=== PATIENT | female | born 1990 | race Caucasian/White ===

== ENCOUNTER 2021-09-12 01:52 | Emergency (ER) | payer OTHER ==
[~2021-09-12] VITALS: Ht 167.6 cm; Wt 95.3 kg
[2021-09-12 02:18] LABS: MEAN CORPUSCULAR HEMOGLOBIN 28.2 uug (24.7-32.8); MEAN CORPUSCULAR VOLUME 82.4 fL (75.5-95.3); PLATELET COUNT (AUTO) 267 K/uL (179-408)
[2021-09-12 02:26] LABS: CREATININE 1.3 mg/dL (0.6-1.3); POTASSIUM 3.5 mmol/L (3.5-5.1)
[2021-09-12 02:32] LABS: BILIRUBIN,DIRECT 0.1 mg/dL (0.0-0.2); BILIRUBIN,TOTAL 0.4 mg/dL (0.2-1.0); TOTAL PROTEIN, SERUM 7.8 g/dL (6.4-8.2)
[2021-09-12 02:59] LABS: *URINE HCG, QUAL NEGATIVE (NEGATIVE)
[2021-09-12] MEDS ORDERED: IV NORMAL SALINE 250 ML IV ONE (03:27)
[2021-09-12] MEDS ORDERED: IOHEXOL 350 100 ML INFUS..BTL ONE (03:27)
[2021-09-12] MEDS ORDERED: SWABABLE VALVE TRANSFER SET EA MC ONE (03:27)
--- NOTE | 2021-09-12 04:00 | NUR ---
Patient in room laying on gurny reading a book with no distress noted. Tele SR with HR 78, 02 sat at 98%, BP 121/84.
--- NOTE | 2021-09-12 04:15 | NUR ---
Patient denies pain at this time. No distress noted.
--- NOTE | 2021-09-12 05:06 | NUR ---
Elijah US tech into do procedure.
[2021-09-12] MEDS: IV NS 1000 ML 1,000 ML IV ONE ×2 (05:22→05:23)
[2021-09-12] MEDS ORDERED: PIPERACILLIN SODIUM/TAZOBACTAM 3.375 G in IV DEXTROSE 5% 50 ML IV ONE (05:30)
--- NOTE | 2021-09-12 05:30 | NUR ---
Called patient's insurance for admission to med-surg floor with Dx Cholecystitis. Waiting for transfer information.
[2021-09-12] MEDS ORDERED: PIPERACILLIN/TAZOBACTAM/D5W 50 ML IV ONE (05:31)
[2021-09-12] MEDS ORDERED: SERT50TA PO (05:36)
--- NOTE | 2021-09-12 07:20 | NUR ---
DR HECK FROM [facility] S/W DR. CULLEN. ACCEPTED PT FOR ADMISSION. PENDING TRANSFER INFORMATION.
--- NOTE | 2021-09-12 08:04 | NUR ---
CALLED [facility] S/W JALEEL NURSING INSPECTOR SUBASSEMBLY. PENDING TRANSFER INFORMATION.
--- NOTE | 2021-09-12 08:57 | NUR ---
RECEIVED A CALL FROM [facility] SURGICAL DRESSING MAKER. PT IS BEING REDIRECTED TO [facility]. ANOTHER MD WILL CALL FOR PEER TO PEER.
[2021-09-12] MEDS ORDERED: ONDANSETRON 4 MG/2 ML VIAL IV ONE (09:00)
[2021-09-12] MEDS ORDERED: MORPHINE SULFATE 4 MG/1 ML DISP.SYRIN IV ONE (09:00)
[2021-09-12] MEDS ORDERED: MORPHINE SULFATE 4 MG/1 ML DISP.SYRIN ONE (09:23)
[2021-09-12] MEDS ORDERED: ONDANSETRON 4 MG/2 ML VIAL ONE (09:24)
--- NOTE | 2021-09-12 10:40 | NUR ---
ATTEMPTED TO F/UP ON [facility] RE: PATIENT'S TRANSFER STATUS. AWAITING CALL BACK.
--- NOTE | 2021-09-12 10:51 | NUR ---
ANDRÉS LAMB: [facility]: [address]. REPORT #: [id number]
--- NOTE | 2021-09-12 11:32 | NUR ---
RECEIVED AN UPDATE FROM [facility] REGARDING TRANSPORTATION STATUS. [facility] WILL BE HERE AT 1245. REPORT GIVEN TO KAYLI CASTILLO OF [facility].
--- NOTE | 2021-09-12 12:48 | NUR ---
Patient does not wish to proceed with medical care recommended by Dr. Olmedo, pt and is not comfortable with the hospital provided by [facility] for transfer. Pt was denied admission to this hospital by the insurance and they were originally going to transfer to [facility] which pt originally consented to. Unfortunately [facility] changed hospitals twice due to changes in bed availability. After several conversations with patient, case operator and MD , patients have decided to leave against medical advice,. Dr Olmedo urged them to see another MD/ER if they want to leave. Patient given information related to possible complications, up to and including , which could occur as a result of leaving the hospital at this time. Patient verbalizes understanding of risks involved due to leaving against medical advice. Patient has signed AMA form, at bedside and RN witnessed. IV removed. Catheter intact and site benign. Pressure and 4x4 gauze applied to site. No bleeding noted. Pt left ED in steady gait/stable condition.
[2021-09-12 12:57] VITALS: BP 136/96
== END 2021-09-12 12:45 | disposition left against medical advice (07) ==
LOC: ER 02:14
DX: K81.0 Acute cholecystitis (principal); R07.9 Chest pain, unspecified; Z53.29 Procedure and treatment not carried out because of patient's decision for other reasons; Z20.822 Contact with and (suspected) exposure to COVID-19
CPT/HCPCS: 36415; 71045; 71275; 76705; 80048; 80076; 83690; 84484 ×2; 84703; 85025; 85379; 87426; 93005 ×2; 96365; 96375; 99285; J2270; J2405; J2543; Q9967; 70030-TC; A4663; J7030; J7050